=== PATIENT | female | born 2000 | race Caucasian/White ===

== ENCOUNTER 2019-01-03 18:25 | Emergency (ER) | payer OTHER ==
[2019-01-03 19:03] VITALS: BP 140/93
--- NOTE | 2019-01-03 19:47 | ER Document Report ---
ED General - General Chief Complaint: Insect Bite Stated Complaint: POSSIBLE INSECT BITE Time Seen by Provider: 01/03/19 19:35 Primary Care Provider: [facility] [Provider Group] - Follow up in 3-5 days Notes: Patient is a 18 year old female that presents to the emergency department for chief complaint of right arm redness. Patient reports she noticed a small spot on her right forearm Thursday and it seemed like it got more red and swollen she did try to poke it with a "sterilize knife", but it only got a little bit worse so she decided come to the emergency department. Denies any fevers, chills, night sweats. She currently rates her pain as a 3 out of 10 describes as an ache sensation worse with palpation over the area of redness. She denies any significant drainage from the area. She reports that she does shave her arms. She is not sure she was bit by a bug or not as that may be a possibility according to the patient. Patient reports that she does not believe that she is . Past Medical History: Denies chronic medical conditions Past Surgical History: Denies surgical history Social History: Denies tobacco, alcohol or drug use. Family History: Reviewed and noncontributory for presenting illness Allergies: Reviewed, see documented allergy list. REVIEW OF SYSTEMS: Other than noted above, the 12 point review of systems was reviewed with the patient and were negative, all pertinent findings are included in the HPI. PHYSICAL EXAMINATION: Vital signs reviewed, nursing noted reviewed. GENERAL: Well-appearing, well-nourished and in no acute distress. HEAD: Atraumatic, normocephalic. EYES: Eyes appear normal, sclera anicteric, conjunctiva are normal. ENT: Moist mucous membranes. NECK: Normal range of motion, supple without lymphadenopathy LUNGS: Breath sounds clear to auscultation bilaterally and equal. No wheezes rales or rhonchi. HEART: Regular rate and rhythm without murmurs EXTREMITIES: good range of motion, no pitting or edema. NEUROLOGICAL: No focal neurological deficits. Moves all extremities spontaneously Motor and sensory grossly intact on exam. PSYCH: Normal mood, normal affect. SKIN: Warm, Dry, normal turgor, there is a area of redness on the right forearm, that is approximately 2 and half centimeters in diameter, with a area of redness measuring approximately 1/2 cm in diameter centrally, but comes to ahead. There is tenderness to palpation, no axillary lymphadenopathy. TRAVEL OUTSIDE OF THE [place] IN LAST 30 DAYS: No - Related Data Allergies/Adverse Reactions: No Known Allergies Allergy (Unverified 01/03/19 19:00) Past Medical History - Social History Smoking Status: Never Smoker Family History: Reviewed & Not Pertinent Physical Exam - Vital signs Vitals: Temp Pulse Resp BP Pulse Ox 98.2 F 81 18 140/93 H 99 01/03/19 19:01 01/03/19 19:01 01/03/19 19:01 01/03/19 19:01 01/03/19 19:01 Course - Re-evaluation Re-evalutation: Patient seen and examined, vital signs reviewed, on the patient's exam, there is a small abscess on the patient's right forearm, this was unroofed with an 18- gauge needle as described in procedure note, patient tolerated well, will prescribe the patient doxycycline twice daily, patient states that she is not , does not plan to be , and she was advised to avoid UV exposure while on this medication and was agreeable to plan of care she is advised to return if her symptoms worsen or do not improve. - Vital Signs Vital signs: Temp Pulse Resp BP Pulse Ox 98.2 F 81 18 140/93 H 99 01/03/19 19:01 01/03/19 19:01 01/03/19 19:34 01/03/19 19:01 01/03/19 19:01 Procedures - Incision and Drainage Right Arm Type: Simple I&D procedure: Chlorprep applied Incision Method: Incision made with needle Amount/type of drainage: 0.5 Notes: 01/03/19 19:45 Patient tolerated well Discharge - Discharge Clinical Impression: Abscess Condition: Stable Disposition: HOME, SELF-CARE Instructions: Abscess ([facility]) Additional Instructions: Please complete the entire course of antibiotics as prescribed, avoid strong UV rays or any tanning beds while on this medication. Please use warm compresses for 20 minutes on 20 minutes off at least 3 times a day. Prescriptions: Doxycycline Hyclate 100 mg PO BID #20 capsule Referrals: [facility] [Provider Group] - Follow up in 3-5 days
== END 2019-01-03 19:50 | disposition home or self-care (01) ==
LOC: ER 18:25
DX: L02.413 Cutaneous abscess of right upper limb (principal)
CPT/HCPCS: 99281